=== PATIENT | female | born 1960 | race Caucasian/White ===

== ENCOUNTER 2025-01-24 09:57 | Day surgery (SDC) | payer MEDICARE ==
[2025-01-24] MEDS ORDERED: Propofol 200 MG/20 ML SDV ONE (11:15)
[2025-01-24 11:32] VITALS: PULSE 71
[2025-01-24 11:38] VITALS: BP 108/75
== END 2025-01-24 12:56 | disposition home or self-care (01) ==
LOC: LB.SDS 09:57
PROVIDERS: ATTEND Surgery
DX: Z12.11 Encounter for screening for malignant neoplasm of colon (principal); D12.5 Benign neoplasm of sigmoid colon; K57.30 Diverticulosis of large intestine without perforation or abscess without bleeding; Z80.0 Family history of malignant neoplasm of digestive organs
CPT/HCPCS: 88305; J2704; J7030